=== PATIENT | male | born 1965 | race African-American/Black ===

== ENCOUNTER 2019-09-04 05:51 | Day surgery (SDC) | payer OTHER ==
[2019-08-29 17:20] VITALS: BMI 34.7
[2019-09-04] MEDS ORDERED: oxyCODONE HCL 10 MG SUSTAINED ACTING TABLET PO STA (06:36)
[2019-09-04] MEDS ORDERED: DEXAMETHASONE SOD PHOSPHATE/PF 10 MG/ML SDV ONE (06:55)
[2019-09-04] MEDS ORDERED: MIDAZOLAM HCL 2 MG/2 ML SINGLE DOSE VIAL ONE ×2 (06:56→07:31)
[2019-09-04] MEDS ORDERED: BUPIVACAINE HCL/PF 0.5% (5 MG/ML) 30 ML VIAL IJ ONE ×2 (06:56→07:38)
--- NOTE | 2019-09-04 07:04 | HP ---
History & Physical Update - History History: No Change - Physical Physical: No Change - Assessment Assessment: No Change - Plan Plan: No Change (H&P reviewed. It is complete/accurate and UTD. No new complaints or medications.)
[2019-09-04] MEDS ORDERED: SUCCINYLCHOLINE CHLORIDE 200 MG/10 ML SYRINGE ONE (07:30)
[2019-09-04] MEDS ORDERED: PROPOFOL 20 ML ONE (07:30)
[2019-09-04] MEDS ORDERED: DEXAMETHASONE SOD PHOSPHATE 4 MG/1 ML VIAL ONE (07:31)
[2019-09-04] MEDS ORDERED: ONDANSETRON 4 MG/2 ML VIAL ONE (07:31)
[2019-09-04] MEDS ORDERED: KETOROLAC TROMETHAMINE 30 MG/1 ML VIAL ONE (07:31)
[2019-09-04] MEDS ORDERED: ceFAZolin SODIUM 1 GM VIAL ONE (07:31)
[2019-09-04] MEDS ORDERED: THROMBIN (RECOMBINANT) 5,000 UNIT VIAL TP ONE (07:33)
[2019-09-04] MEDS ORDERED: LIDOCAINE 1%/EPI 1:100000 (20 ML MULTI DOSE VIAL) ONE (07:33)
[2019-09-04] MEDS ORDERED: GELATIN, ABSORBABLE 12-7MM EACH SPONGE TP ONE (07:34)
[2019-09-04] MEDS ORDERED: BUPIVACAINE HCL/PF 0.5% (5MG/ML) 10 ML VIAL ONE (07:34)
[2019-09-04] MEDS ORDERED: methylPREDNISolone ACET (DEPO) 40 MG/1 ML VIAL ONE (07:44)
[2019-09-04] MEDS ORDERED: oxyCODONE HCL 10 MG SUSTAINED ACTING TABLET ONE (08:51)
[2019-09-04] MEDS ORDERED: oxyCODONE HCL 5 MG TABLET PO PRN ×2 (09:09)
[2019-09-04] MEDS ORDERED: ONDANSETRON 4 MG/2 ML VIAL IVPUSH PRN (09:09)
[2019-09-04] MEDS ORDERED: ACETAMINOPHEN 1000 MG/100 ML VIAL (NON FORMULARY) IVPB ONE ×2 (09:10→10:30)
[2019-09-04] MEDS ORDERED: LACTATED RINGERS SOLUTION 1,000 ML IV SCH (09:15)
[2019-09-04] MEDS ORDERED: LIDOCAINE 1%/EPI 1:100000 (50 ML MULTI DOSE VIAL) INF ONE (09:27)
[2019-09-04] MEDS ORDERED: ACETAMINOPHEN INJECTION 100 ML IVPB ONE (10:50)
--- NOTE | 2019-09-04 10:52 | OP ---
Operative Note - Note: Operative Date: 09/04/19 Pre-Operative Diagnosis: Chronic LBP with RLE radiculopathy Operation: L3-L5 laminectomy (bilateral) Post-Operative Diagnosis: Same as Pre-op Surgeon: Frederick Castrejon Pilot Captain: Mario Luna Anesthesiologist/JOB COACH/JOB DEVELOPER: Jim Simon Anesthesia: Spinal Specimens Removed: None. Estimated Blood Loss (mls): 25 Fluid Volume Replaced (mls): 800 (LR) Operative Report Dictated: Yes
--- NOTE | 2019-09-04 10:54 | SURG ---
Surgery Automobile Assembly Supervisor Note Automobile Assembly Supervisor: Mario Luna PA-C Date of Service: 09/04/19 Diagnosis: Chronic LBP with RLE radiculopathy Procedure: L3-L5 laminectomy (bilateral) I was present for the entirety of the operative procedure. For further detail, please refer to operative report. Visit type - Case Type Case Type: Scheduled - New patient This patient is new to me today: Yes Date on this admission: 09/04/19
[2019-09-04] MEDS ORDERED: METOPROLOL TARTRATE 5 MG/5 ML VIAL IVPUSH ONE (11:29)
[2019-09-04] MEDS ORDERED: hydrALAZINE HCL 20 MG/ML VIAL ONE (11:57)
[2019-09-04] MEDS ORDERED: hydrALAZINE HCL 20 MG/ML VIAL IVPUSH ONE (11:58)
--- NOTE | 2019-09-04 11:58 | OP ---
DATE OF OPERATION: 09/04/2019 PREOPERATIVE DIAGNOSIS: Spinal stenosis L3-4, L4-5. POSTOPERATIVE DIAGNOSIS: Spinal stenosis L3-4, L4-5. PROCEDURE PERFORMED: Laminectomy L3-L4, L4-L5 SURGEON: Frederick Castrejon MD PHARMACEUTICAL PHYSICIAN: HERSON Milan ESTIMATED BLOOD LOSS: 60 mL. INTRAVENOUS FLUIDS: Per anesthesia. ANESTHESIA: Spinal/TLIP block. COMPLICATIONS: There were none. DISPOSITION: Patient brought to the PACU in stable condition. INDICATIONS FOR SURGERY: Patient is a 54-year-old gentleman who has been suffering from pain from his back down his legs. X-rays and MRI were completed, which noted that he had spinal stenosis from L3-L5. He had gone through an exhaustive course of treatment for this, which included medications, physical therapy as well as injections. Unfortunately, his pain continued to persist despite all this. At this point, risks, benefits, and alternatives were discussed, and the patient consented to surgery. DESCRIPTION OF PROCEDURE: Patient was brought to the operating room by the anesthesia staff. After appropriate patient identification was performed, spinal anesthesia was given. TLIP block was also given. Patient was able to position himself prone onto the OR table with all areas and bony prominences well padded at this time. Two needles were placed in his back to mich off the L3, L5 segments. X-ray was taken to confirm this was correct. Needle was removed, and 10 mL of lidocaine with epinephrine was injected into his back. At this time, his back was prepped and draped in a sterile manner. At this point, a time-out was completed. The incision was made from the top of L3 down to the bottom of L5. Dissection was carried down to the fascia. Fascia was then split open at this time, and appropriate retractor was then placed in. A spinal needle was placed onto the L4 lamina to mich off the L4-5 space. X-rays was taken to confirm this was correct. Needle was removed, and the L3-4 and L4-5 interspinous ligament was removed. The spinous process of L4 was removed. The L4 lamina was removed. A complete decompression was performed such that by the end of the procedure, the L4 and L5 nerve roots appeared to be well decompressed. All bleeding was well controlled at this time. Steroid was placed over the nerve root. FloSeal was placed over that. The fascia was closed with a No. 1 Vicryl suture. The subcutaneous tissues were closed with 2-0 Vicryl suture. Skin was closed with 3-0 Monocryl suture. Dermabond was applied. Steri-Strips were applied. A sterile dressing was applied. Patient was placed supine on the OR bed, brought to the PACU in stable condition. Guy BLOUNT/[id number]
[2019-09-04 13:01] VITALS: TEMP 98.6
[2019-09-04 15:41] VITALS: BP 145/71; PULSE 87
== END 2019-09-04 13:45 | disposition home or self-care (01) ==
LOC: FASU 05:51
PROVIDERS: ATTEND Orthopaedic Surgery Orthopaedic Surgery of the Spine
PROC: 0SB20ZZ Excision of Lumbar Vertebral Disc, Open Approach (ICD-10-PCS; 2019-09-04)
PROC: 01NB0ZZ Release Lumbar Nerve, Open Approach (ICD-10-PCS; principal; 2019-09-04 09:27)
DX: M48.061 Spinal stenosis, lumbar region without neurogenic claudication (principal); E11.9 Type 2 diabetes mellitus without complications; I10 Essential (primary) hypertension; E66.9 Obesity, unspecified
CPT/HCPCS: 72100-TC-FY; 76000-TC-FY; 82962; 94760; J0131